=== PATIENT | female | born 1965 | race Caucasian/White ===

== ENCOUNTER → 2017-02-25 | Outpatient (CLI) | payer OTHER ==
[~2017-02-25] MED LIST: ASPIRIN81 M2 PO; HYZAAR 100-25 T1 TA1 PO; LEVOTHYROXINE50 MCG PO; ZOLOFT50 MG PO; ZYRTEC PO
--- NOTE | ~2017-02-25 | MY11 ---
[facility] A Service [facility] RADIOLOGY TEXT RESULTS PATIENT: KJ JUÁREZ LOCATION: [facility] : [birth year] UNIT #: [id number] AGE: [address]: Suhail Champagne MD SEX: F ORDER DR: [id number] [place] [id number] MR#: [id number] Acc #: [id number] NAME: KJ JUÁREZ : 1965 SEX: F STUDY DATE/TIME: 02/25/2017 10:14 UNIT: [facility] ROOM: STUDY DESCRIPTION: MY Mammogram Screening Dig Alan Attending Physician: Suhail Champagne M.D. Referring Physician: Suhail Champagne M.D. Ordering Physician: Suhail Champagne M.D. Primary Care Physician: Antonio Sheth M.D. MEDICAL IMAGING REPORT This report is preliminary unless electronic signature is present. EXAM Digital screening mammogram with CAD. INDICATION Routine screening. PROCEDURE Bilateral CC and MLO views obtained on a digital mammography unit. FDA-approved CAD device utilized. COMPARISON 12/19/2015 FINDINGS Breasts are fat replaced. No dominant mass or suspicious calcification. IMPRESSION Negative screening mammogram. Screening interval in 1 year suggested. Patients over the age of 40 are entered into a reminder system with target due date for the next mammogram. A result letter will also be sent to the patient. BIRADS: 1 Negative Dictated by... Aj Leroy M.D. THIS IS AN ELECTRONICALLY VERIFIED REPORT Aj Leroy M.D. at 02/26/2017 7:12 AM [facility] A Service [facility] RADIOLOGY TEXT RESULTS PATIENT: KJ JUÁREZ LOCATION: [facility] : 69 UNIT #: [id number] AGE: [address]: Suhail Champagne MD SEX: F ORDER DR: Tamara TD: 02/25/2017 18:22 JOB #: [id number] MEDICAL IMAGING REPORT Page 1 of 1
== END | disposition home or self-care (01) ==
LOC: SMAM 09:36
DX: Z12.31 Encounter for screening mammogram for malignant neoplasm of breast (principal)
CPT/HCPCS: G0202

== ENCOUNTER 2017-05-01 17:22 | Emergency (ER) | payer OTHER ==
[~2017-05-01] VITALS: Ht 167.6 cm; Wt 90.7 kg
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
[~2017-05-01 17:22] MED LIST changes: -LEVOTHYROXINE50 MCG PO
[2017-05-01] MEDS ORDERED: LEVOTHYROXINE50 MCG PO (17:39)
== END 2017-05-01 20:05 | disposition home or self-care (01) ==
LOC: SED 17:22
DX: S46.911A Strain of unspecified muscle, fascia and tendon at shoulder and upper arm level, right arm, initial encounter (principal); I10 Essential (primary) hypertension; E07.9 Disorder of thyroid, unspecified; Z88.0 Allergy status to penicillin; V43.52XA Car driver injured in collision with other type car in traffic accident, initial encounter
CPT/HCPCS: 73030; 99283